=== PATIENT | male | born 1995 | race Caucasian/White ===

== ENCOUNTER 2020-08-05 14:25 | Emergency (ER) | payer MEDICAID ==
[~2020-08-05] VITALS: Ht 157.5 cm; Wt 58.1 kg
[~2020-08-05 14:25] MED LIST: MOT800 PO
[2020-08-05 14:59] VITALS: Ht 157.5 cm; Wt 58.1 kg
[2020-08-05 16:45] VITALS: BP 101/61
== END 2020-08-05 16:40 | disposition home or self-care (01) ==
LOC: ED 14:25
DX: R10.33 Periumbilical pain (principal); Z48.01 Encounter for change or removal of surgical wound dressing; Z90.89 Acquired absence of other organs